=== PATIENT | female | born 1940 | race Caucasian/White ===

== ENCOUNTER 2019-12-09 11:51 | Emergency (ER) | payer MEDICARE ==
[~2019-12-09] VITALS: Ht 157.5 cm; Wt 68.0 kg
[~2019-12-09 11:51] MED LIST: ACIDOPHILUS PR1 EAC1 PO; CALCIUM500 MG PO; CIMETIDINE200 MG PO; GUAIFENESIN600 MG PO; MULTI VITAMIN1 EACH PO; MULTIVITAMINS1 EAC7 PO; NEXIUM20 MG PO; NORCO 5-325 TA1 EACH PO; PREVACID30 MG PO; PRILOSEC20 MG PO; PROVENTIL HFA6.7 GM INH; TRICOR145 MG PO; VENTOLIN HFA18 GM INH; VITAMIN C1000 M1 PO; ZITHROMAX250 MG PO
[2019-12-09] MEDS ORDERED: ESOMEPRAZOLE MA40 MG PO (12:08)
[2019-12-09] MEDS ORDERED: FENOFIBRATE145 MG PO (12:09)
[2019-12-09] MEDS ORDERED: ONDANSETRON ODT8 MG PO (15:01)
[2019-12-09] MEDS ORDERED: FLONASE ALLERG9.9 ML NAS (15:01)
--- NOTE | 2019-12-09 22:57 | EKG ---
[facility] [address] [facility] [place], [place] [address] Signed Normal sinus rhythm Normal ECG No previous ECGs available Confirmed by MANDY ZELAYA MD ([id number]) on 12/09/2019 10:56:49 PM Electronically Signed By: MANDY ZELAYA MD 12/09/19 2257 PATIENT NAME: BRITTANY DENNIS Electrocardiogram DATE OF : 38 PHYSICIAN: MANDY ZELAYA MD REPORT #: [id number] REPORT IS CONFIDENTIAL AND NOT TO BE RELEASED WITHOUT AUTHORIZATION
== END 2019-12-09 16:11 | disposition home or self-care (01) ==
LOC: ED 11:51
DX: R00.2 Palpitations (principal); H69.90 Unspecified Eustachian tube disorder, unspecified ear; R11.0 Nausea; G47.30 Sleep apnea, unspecified; Z88.5 Allergy status to narcotic agent; Z88.8 Allergy status to other drugs, medicaments and biological substances; Z79.899 Other long term (current) drug therapy
CPT/HCPCS: 0297T; 0298T; 80053; 83690; 84443; 84484; 85025; 93005; 93010; 99285-25; J7040

== ENCOUNTER 2022-02-18 09:31 | Emergency (ER) | payer MEDICARE ==
[~2022-02-18] VITALS: Ht 154.9 cm; Wt 63.5 kg
[~2022-02-18 09:31] MED LIST changes: +ESOMEPRAZOLE MA40 MG PO; +FENOFIBRATE145 MG PO; +FLONASE ALLERG9.9 ML NAS; +ONDANSETRON ODT8 MG PO
[2022-02-18] MEDS ORDERED: AMLODIPINE BESYL5 MG PO (10:02)
[2022-02-18] MEDS ORDERED: OMEGA 3 1,0001 EACH PO (10:03)
[2022-02-18] MEDS ORDERED: LOW DOSE ASPIRI81 MG PO (10:04)
--- NOTE | 2022-02-18 14:24 | EKG ---
[facility] [address] [facility] [place], [place] [address] Signed Normal sinus rhythm Normal ECG No previous ECGs available Confirmed by MANDY ZELAYA MD ([id number]) on 02/18/2022 2:23:47 PM Electronically Signed By: MANDY ZELAYA MD 02/18/22 1424 PATIENT NAME: BRITTANY DENNIS Electrocardiogram DATE OF : 38 PHYSICIAN: MANDY ZELAYA MD REPORT #: [id number] REPORT IS CONFIDENTIAL AND NOT TO BE RELEASED WITHOUT AUTHORIZATION
== END 2022-02-18 15:52 | disposition home or self-care (01) ==
LOC: ED 09:31
DX: I47.9 Paroxysmal tachycardia, unspecified (principal); R55 Syncope and collapse; E78.00 Pure hypercholesterolemia, unspecified; G47.30 Sleep apnea, unspecified; Z88.5 Allergy status to narcotic agent; Z88.8 Allergy status to other drugs, medicaments and biological substances; Z79.899 Other long term (current) drug therapy; Z79.82 Long term (current) use of aspirin
CPT/HCPCS: 71260; 80053; 81001; 83690; 83880; 85025; 85379; 93005; 93010; 93971; 99284-25; Q9967

== ENCOUNTER 2022-05-27 16:02 | Emergency (ER) | payer MEDICARE ==
[~2022-05-27] VITALS: Ht 154.9 cm; Wt 63.5 kg
[~2022-05-27 16:02] MED LIST changes: +AMLODIPINE BESYL5 MG PO; +LOW DOSE ASPIRI81 MG PO; +OMEGA 3 1,0001 EACH PO
[2022-05-27] MEDS ORDERED: METOPROLOL SUCC25 MG PO (16:21)
== END 2022-05-27 18:40 | disposition home or self-care (01) ==
LOC: ED 16:02
DX: U07.1 COVID-19 (principal); E78.00 Pure hypercholesterolemia, unspecified; G47.30 Sleep apnea, unspecified; I10 Essential (primary) hypertension; Z88.5 Allergy status to narcotic agent; Z88.8 Allergy status to other drugs, medicaments and biological substances; Z79.899 Other long term (current) drug therapy; Z79.82 Long term (current) use of aspirin
CPT/HCPCS: 96374; 99283-25

== ENCOUNTER 2022-11-06 12:54 | Emergency (ER) | payer MEDICARE ==
[~2022-11-06] VITALS: Ht 154.9 cm; Wt 63.5 kg
[~2022-11-06 12:54] MED LIST changes: +METOPROLOL SUCC25 MG PO
[2022-11-06] MEDS ORDERED: FENOFIBRATE145 MG PO (15:08)
[2022-11-06] MEDS ORDERED: ZITHROMAX250 MG PO (17:06)
== END 2022-11-06 17:38 | disposition home or self-care (01) ==
LOC: ED 12:54
DX: J20.9 Acute bronchitis, unspecified (principal); I10 Essential (primary) hypertension; G47.30 Sleep apnea, unspecified; E78.00 Pure hypercholesterolemia, unspecified; Z88.5 Allergy status to narcotic agent; Z88.8 Allergy status to other drugs, medicaments and biological substances; Z79.899 Other long term (current) drug therapy; Z79.82 Long term (current) use of aspirin; Z20.822 Contact with and (suspected) exposure to COVID-19
CPT/HCPCS: 71046; 87502; 99283-25; U0003

== ENCOUNTER 2023-11-19 11:10 | Day surgery (SDC) | payer MEDICARE ==
[~2023-11-19] VITALS: Ht 154.9 cm; Wt 65.0 kg
[~2023-11-19 11:10] MED LIST changes: +CENTRUM ADULTS1 EACH PO; +CULTURELLE1 EACH PO; +MAGNESIUM OXID400 M1 PO; +NEXIUM40 MG PO; +OMEPRAZOLE20 MG PO; +VENTOLIN HFA18 GM; +VERAPAMIL ER120 MG PO; +XANAX XR0.5 MG PO; +ZESTRIL20 MG PO
[2023-11-19 12:08] VITALS: BP 138/66
[2023-11-19 14:05] VITALS: BP 125/74
--- NOTE | 2023-11-19 14:38 | NUR ---
11/19/23 1438 Cande Gaines 1338 PT ARRIVED IN PACU SLEEPY. 1355 DR AT BEDSIDE. ALL QUESTIONS ANSWERED. 1400 SITTING UP IN BED SIPPING ON WATER. 1410 GETTING DRESSED WITH STAND BY ASSIST. 1415 DC INSTRUCTIONS GIVEN. 1420 LEFT VIA W/C.
--- NOTE | 2023-11-19 18:49 | OR ---
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 POSTOPERATIVE DIAGNOSES: 1. No evident no evidence of Walton's esophagus, small hiatal hernia. 2. Secondary reactive gastric polyps. PROCEDURE: Esophagogastroduodenoscopy with biopsy. ANESTHESIA: Intravenous sedation; fentanyl 100 mcg and Versed 2 mg. INDICATION: This 83-year-old white woman is a patient of [facility]UR[facility] Noe and had complaints of Walton's esophagus from the past. In 2012, she was thought to have a distal esophageal stricture and hiatal hernia. She has had complaints typical of biliary disease and gallbladder ultrasound performed in August showed no evidence of gallstones. She currently takes Nexium 40 mg daily. She notes she has no dysphagia. She is admitted to undergo upper endoscopy on the basis of her Walton's epithelium as part of her ongoing workup for abdominal pain, which was suggestive of biliary disease. The risk of bleeding, infection, and perforation related to upper endoscopy was reviewed with her. She understands and wished to proceed. FINDINGS: There is no clear evidence of Walton's epithelium on my examination. She does have a small hiatal hernia. There were some reactive gastric polyps. Remaining upper exam was normal including duodenum, antrum of stomach and esophagus. DESCRIPTION OF PROCEDURE: The patient was brought to the endoscopy suite and given topical lidocaine hypopharyngeal anesthesia and placed in lateral decubitus position. She was given intravenous sedation to the point of slurred speech and nystagmus. A bite block was placed. The Olympus video upper endoscope was passed in the hypopharynx. The vocal cords were normal. Scope was advanced to the esophagus. The esophagus was entirely normal including the distal portion without sign of stricture, neoplasm or Walton's. Electronically Signed By: NOAH RASHID MD 11/19/23 1849 PATIENT NAME: BRITTANY DENNIS OPERATIVE REPORT DATE OF : 38 REPORT #: [id number] PHYSICIAN: NOAH RASHID MD PCP: BRIT HOLDEN REPORT IS CONFIDENTIAL AND NOT TO BE RELEASED WITHOUT AUTHORIZATION [facility] [address] [place], [place] [address] Signed The scope was advanced to the stomach which was insufflated with air. There was no sign of bile within the stomach. Rugal folds were normal. There were several polyps, likely benign. Antrum was normal as was the pylorus. The scope was passed into the duodenum, which was normal. Biopsies were taken of the duodenum to assess for celiac disease. The scope was then withdrawn and biopsies taken of the antrum for both BILLIE and pathologic testing. Retroflexed view of the rectum showed a small hiatal hernia. The scope was straightened and withdrawn. Biopsies taken customer solutions representative gastric polyp. Scope was withdrawn and biopsies taken of the distal esophageal mucosa, which showed no evidence clinically of Walton's from an endoscopic perspective. The scope was further withdrawn and biopsies taken of the midesophagus as well. The scope was removed and the patient was taken to the recovery room in good condition. CONCLUDING DIAGNOSIS: No clear evidence of Walton's esophagus at this time. Small hiatal hernia with ongoing reflux and reactive gastric polyps related to chronic PPI use. PLAN: Since her gallbladder ultrasound was negative and she does still have some symptoms of abdominal pain when eating indiscriminately, we will proceed with a CCK-HIDA test. This will be ordered and I will see her in the office following that. In the meantime, she will continue Nexium 40 mg daily. MD KE Neff/TOVAL /[id number] cc: Catherine Rahman MD Copies: ~ Electronically Signed By: NOAH RASHID MD 11/19/23 1849 PATIENT NAME: BRITTANY DENNIS OPERATIVE REPORT DATE OF : 38 REPORT #: [id number] PHYSICIAN: NOAH RASHID MD PCP: BRIT HOLDEN REPORT IS CONFIDENTIAL AND NOT TO BE RELEASED WITHOUT AUTHORIZATION
--- NOTE | 2023-11-22 17:04 | PATH ---
[facility] [address] [facility] [place], [place] [address] Signed SPECIMEN(S): A DUODENAL BIOPSY SPECIMEN(S): B ANTRUM/PYLORUS BIOPSY SPECIMEN(S): C GASTRIC POLYP SPECIMEN(S): D LOWER ESOPHAGEAL BIOPSY SPECIMEN(S): E MIDDLE ESOPHAGEAL BIOPSY SPECIMEN SOURCE: A. DUODENAL BIOPSY B. ANTRUM/PYLORUS BIOPSY C. GASTRIC POLYP D. LOWER ESOPHAGEAL BIOPSY E. MIDDLE ESOPHAGEAL BIOPSY CLINICAL HISTORY: EGD. History of Walton's; reflux; right upper quadrant pain FINAL PATHOLOGIC DIAGNOSIS: A. Duodenal biopsy: - Benign duodenal mucosa with slightly increased epithelial lymphocytes. - See comment. B. Antrum/pylorus biopsy: - Gastric antral-type mucosa with diffuse mild superficial chronic gastritis. - A Helicobacter pylori immunostain is negative for organisms. C. Gastric polyp: - Benign fundic gland polyp. D. Lower esophageal biopsy: - Benign esophageal mucosa, negative for increased epithelial eosinophils. - Negative for glandular mucosa. E. Mid esophageal biopsy: - Benign esophageal mucosa, negative for increased epithelial eosinophils. JVR:clv COMMENT: The duodenal biopsies show slightly increased epithelial lymphocytes but with minimal villous attenuation. The significance of these findings for celiac disease is not clear and correlation with the clinical presentation could be considered. MICROSCOPIC EXAMINATION: Histologic sections of all submitted blocks are examined by light microscopy. These findings, together with the gross examination, support the pathologic PATIENT NAME: BRITTANY DENNIS PATHOLOGY DATE OF : 38 REPORT #: [id number] PHYSICIAN: ROMMEL PATHOLOGY PCP: BRIT HOLDEN REPORT IS CONFIDENTIAL AND NOT TO BE RELEASED WITHOUT AUTHORIZATION [facility] [address] [place], [place] [address] Signed diagnosis. A Helicobacter pylori immunostain is performed with appropriate positive and negative controls on block B1 and is negative for organisms. JVR:clv GROSS DESCRIPTION: A. The specimen, labeled and designated "Dorian, duodenal biopsy," is received in formalin and consists of two fragments of soft roberts tissue that are up to 0.3 cm in greatest dimension. Entirely submitted in (A1). B. The specimen, labeled and designated "Dorian, antrum/pylorus biopsy," is received in formalin and consists of two fragments of soft roberts tissue that are up to 0.4 cm in greatest dimension. Entirely submitted in (B1). C. The specimen, labeled and designated "Dorian, gastric polyp," is received in formalin and consists of one fragment of soft roberts tissue that is up to 0.5 cm in greatest dimension. Entirely submitted in (C1). D. The specimen, labeled and designated "Dorian, lower esophageal biopsy," is received in formalin and consists of one fragment of soft roberts tissue that is up to 0.3 cm in greatest dimension. Entirely submitted in (D1). E. The specimen, labeled and designated "Dorian, mid esophageal biopsy," is received in formalin and consists of one fragment of soft roberts tissue that is up to 0.5 cm in greatest dimension. Entirely submitted in (E1). TW (under the direct supervision of a pathologist) The Gross Description was prepared using a voice recognition system. The report was reviewed for accuracy; however, sound-alike word errors, addition and/or deletions may occur. If there is any question about this report, please contact Client Services. PERFORMING LABORATORY: Technical component was performed by [facility], [address] [place], [place] [address] [place] [address] (CLIA# [id number]). Professional interpretation was performed by [facility] - [facility], [address] [place] [address] Ave[address] [place] [address] (CLIA#: [id number]). Diagnostician: Dwayne Parnell MD Pathologist Electronically Signed 11/22/2023 PATIENT NAME: BRITTANY DENNIS PATHOLOGY DATE OF : 38 REPORT #: [id number] PHYSICIAN: ROMMEL GONZALEZ PCP: BRIT HOLDEN REPORT IS CONFIDENTIAL AND NOT TO BE RELEASED WITHOUT AUTHORIZATION [facility] [address] [place] [address] [place], [place] [address] Signed Copies: ~ PATIENT NAME: BRITTANY DENNIS PATHOLOGY DATE OF : 38 REPORT #: [id number] PHYSICIAN: ROMMEL GONZALEZ PCP: BRIT HOLDEN REPORT IS CONFIDENTIAL AND NOT TO BE RELEASED WITHOUT AUTHORIZATION
== END 2023-11-19 14:20 | disposition home or self-care (01) ==
LOC: OPS 11:10 → DS 11:11 → OPS 12:45
PROVIDERS: ATTEND Surgery
PROC: 0DB68ZX Excision of Stomach, Via Natural or Artificial Opening Endoscopic, Diagnostic (ICD-10-PCS; 2023-11-19)
PROC: 0DB98ZX Excision of Duodenum, Via Natural or Artificial Opening Endoscopic, Diagnostic (ICD-10-PCS; principal; 2023-11-19 12:15)
DX: K29.50 Unspecified chronic gastritis without bleeding (principal); K31.7 Polyp of stomach and duodenum; I10 Essential (primary) hypertension; Z86.79 Personal history of other diseases of the circulatory system; Z87.19 Personal history of other diseases of the digestive system
CPT/HCPCS: 99153; G0500; J2250; J3010; J7121

== ENCOUNTER 2025-04-21 15:20 | Emergency (ER) | payer MEDICARE ==
[~2025-04-21] VITALS: Ht 154.9 cm; Wt 67.0 kg
[2025-04-21] MEDS ORDERED: AMOXICILLIN500 MG PO (15:47)
[2025-04-21] MEDS ORDERED: FENOFIBRATE40 MG PO (15:47)
[2025-04-21 16:08] LABS: BASOPHILS 0.4 % (0.1-1.2); EOSINOPHILS 2.7 % (0.7-5.8); HEMATOCRIT 39.6 % (34.1-44.9); HEMOGLOBIN 13.2 g/dL (11.2-15.7); LYMPHOCYTES 43.5 % (19.3-51.7); MCH 30.1 PG (25.6-32.2); MCHC 33.3 g/dL (32.2-35.5); MCV 90.2 fL (79.4-94.8); MONOCYTES 8.3 % (4.7-12.5); NEUTROPHILS 44.7 % (34.0-71.1); PLATELET COUNT 243 K/uL (182-369); RBC 4.39 M/uL (3.93-5.22)
[2025-04-21 16:24] LABS: ALBUMIN 3.7 g/dL (3.4-5.0); ALBUMIN/GLOBULIN RATIO 1.03 (1.1-2.4); ANION GAP 12.9 (7-21); BILIRUBIN, TOTAL 0.4 mg/dL (0.2-1.0); BUN/CREATININE RATIO 31.42 (6.0-28.6); CALCIUM 10.3 mg/dL (8.5-10.1); CREATININE, SERUM 0.7 mg/dL (0.55-1.02); POTASSIUM 3.9 mmol/L (3.5-5.1); PROTEIN, TOTAL 7.3 g/dL (6.4-8.2)
[2025-04-21 17:41] LABS: BILIRUBIN, URINE NEGATIVE (negative); BLOOD/HGB, URINE TRACE-I (Negative); KETONE, URINE NEGATIVE (Negative); LEUK ESTERASE, URINE TRACE (negative); NITRITE, URINE NEGATIVE (negative); PH, URINE 6.5 (5-7)
[2025-04-21 17:54] LABS: BACTERIA, URINE NONE SEEN /hpf (negative); CASTS, URINE NONE SEEN \\lpf; COLLECTION TYPE, URINE CLEAN CATCH; CRYSTALS, URINE NONE SEEN (0-1+); EPITHELIAL CELLS, URINE SQUAMOUS 1+ /lpf (0-1+); REFLEX CULTURE, URINE No (No)
[2025-04-21 18:50] VITALS: BP 134/67
== END 2025-04-21 19:04 | disposition home or self-care (01) ==
LOC: ED 15:20
PROVIDERS: Emergency Medicine
DX: R10.9 Unspecified abdominal pain (principal); I10 Essential (primary) hypertension; G47.33 Obstructive sleep apnea (adult) (pediatric); Z86.73 Personal history of transient ischemic attack (TIA), and cerebral infarction without residual deficits; Z88.5 Allergy status to narcotic agent; Z88.8 Allergy status to other drugs, medicaments and biological substances; Z79.899 Other long term (current) drug therapy; Z79.82 Long term (current) use of aspirin
CPT/HCPCS: 36415; 74177; 80053; 81001; 85025; 99284-25; Q9967

== ENCOUNTER 2025-07-15 16:56 | Emergency (ER) | payer MEDICARE ==
[~2025-07-15] VITALS: Ht 154.9 cm; Wt 67.0 kg
[~2025-07-15 16:56] MED LIST changes: +AMOXICILLIN500 MG PO; +FENOFIBRATE40 MG PO
[2025-07-15 18:20] LABS: BASOPHILS 0.4 % (0.1-1.2); EOSINOPHILS 3.3 % (0.7-5.8); LYMPHOCYTES 32.4 % (19.3-51.7); MCH 30.3 PG (25.6-32.2); MCHC 33.2 g/dL (32.2-35.5); MCV 91.2 fL (79.4-94.8); MONOCYTES 8.7 % (4.7-12.5); NEUTROPHILS 54.8 % (34.0-71.1); RBC 4.33 M/uL (3.93-5.22)
[2025-07-15 18:43] LABS: ALT (SGPT) 20.0 U/L (14-59); AST (SGOT) 23.0 U/L (15-37); GLOMERULAR FILTRATION RATE,EST 86.0 mL/min (>60); PROTEIN, TOTAL 7.2 g/dL (6.4-8.2); UREA NITROGEN 16.0 mg/dL (7-18)
[2025-07-15 19:43] VITALS: BP 158/71
--- NOTE | 2025-07-16 00:32 | EKG ---
[facility] [address] [facility] [place] [address] Signed Normal sinus rhythm Normal ECG When compared with ECG of 25-MAR-2024 15:53, No significant change was found Confirmed by Theron Plaza MD () on 07/16/2025 12:31:56 AM Electronically Signed By: THERON PLAZA MD 07/16/25 003 PATIENT NAME: BRITTANY DENNIS Electrocardiogram DATE OF : 38 PHYSICIAN: THERON PLAZA MD REPORT #: [id number] REPORT IS CONFIDENTIAL AND NOT TO BE RELEASED WITHOUT AUTHORIZATION
== END 2025-07-15 19:47 | disposition home or self-care (01) ==
LOC: ED 16:56
PROVIDERS: Emergency Medicine
DX: I10 Essential (primary) hypertension (principal); B34.9 Viral infection, unspecified; E86.9 Volume depletion, unspecified; E78.00 Pure hypercholesterolemia, unspecified; G47.30 Sleep apnea, unspecified; Z86.73 Personal history of transient ischemic attack (TIA), and cerebral infarction without residual deficits; Z88.5 Allergy status to narcotic agent; Z88.8 Allergy status to other drugs, medicaments and biological substances; Z79.82 Long term (current) use of aspirin; Z79.899 Other long term (current) drug therapy
CPT/HCPCS: 36415; 71045; 80053; 83880; 84484; 85025; 93005; 93010; 99285-25